=== PATIENT | male | born 1945 | race Caucasian/White ===

== ENCOUNTER 2019-06-19 11:30 | Outpatient (CLI) | payer MEDICARE | END 2019-06-19 23:59 | disposition home or self-care (01) | LOC: CARD DIAG 11:30 | PROVIDERS: ATTEND Internal Medicine Cardiovascular Disease | DX: I05.8 Other rheumatic mitral valve diseases (principal); Z95.811 Presence of heart assist device; Z95.810 Presence of automatic (implantable) cardiac defibrillator | CPT/HCPCS: 93308 ==